=== PATIENT | female | born 1980 | race Caucasian/White ===

== ENCOUNTER → 2023-09-29 | Outpatient (CLI) | payer OTHER ==
[2023-09-30 03:19] LABS: ANA SCREEN with REFLEX Negative (Negative)
[2023-10-02 19:10] LABS: ANTI-CYC CITRULLINATED PEPT AB 5 units (0-19)
== END ==
LOC: LAB 13:54
PROVIDERS: Family Medicine
DX: R76.8 Other specified abnormal immunological findings in serum (principal)

== ENCOUNTER 2024-01-02 10:27 | Emergency (ER) | payer OTHER ==
[~2024-01-02] VITALS: Ht 160 cm; Wt 87.7 kg
[2024-01-02] MEDS ORDERED: CYMBALTA20 MG PO (10:54)
[2024-01-02] MEDS ORDERED: Morphine 4 MG/ML VIAL IV PRN (11:00)
[2024-01-02] MEDS ORDERED: NS 1,000 ML IV ONE (11:00)
[2024-01-02 11:13] LABS: BASO # 0.03 K/mm3 (0.02-0.10); EOS # 0.06 K/mm3 (0.04-0.40); HEMATOCRIT 41.9 % (37.0-47.0); HEMOGLOBIN 13.6 g/dL (12.5-16.0); LYMPH# 1.72 K/mm3 (1.50-4.00); MEAN CELL VOLUME 95 fl (78-100); MEAN CORPUSCULAR HEMOGLOBIN 31 pg (27-31); MEAN CORPUSCULAR HGB CONC 33 g/dL (33-37); MEAN PLATELET VOLUME 9.6 fl (7.4-10.4); MONO # 0.36 K/mm3 (0.20-0.80); PLATELET COUNT 301 K/mm3 (130-400); RED BLOOD COUNT 4.43 M/mm3 (4.10-5.30); RED CELL DISTRIBUTION WIDTH 12.4 % (11.5-14.5); WHITE BLOOD COUNT 5.9 K/mm3 (4.8-10.8)
[2024-01-02 11:18] LABS: ALBUMIN 4.4 g/dL (3.5-5.0); SODIUM 140 mmol/L (136-145)
[2024-01-02 11:19] LABS: CALCIUM 9.5 mg/dL (8.3-10.5)
[2024-01-02 11:20] LABS: GLUCOSE 82 mg/dL (65-105); TOTAL PROTEIN 7.4 g/dL (6.4-8.3)
[2024-01-02 11:21] LABS: CARBON DIOXIDE 23 mmol/L (22-29)
[2024-01-02 11:22] LABS: TOTAL BILIRUBIN 0.5 mg/dL (0.2-1.2)
[2024-01-02] MEDS ORDERED: Iohexol 300 - 100 ML VIAL IV ONE (11:22)
[2024-01-02 11:25] LABS: AST-SGOT 15 U/L (5-34)
[2024-01-02 11:27] LABS: ALT/SGPT 17 U/L (0-55); LIPASE 19 U/L (8-78)
[2024-01-02 11:35] LABS: TROPONIN-I < 0.030 ng/mL (0.00-0.033)
[2024-01-02 11:54] LABS: PH-URINE 7.5 (5.0 - 8.0); URINE APPEARANCE CLEAR (CLEAR); URINE BILIRUBIN NEGATIVE (NEGATIVE); URINE BLOOD NEGATIVE (NEGATIVE); URINE COLOR YELLOW (YELLOW); URINE GLUCOSE NEGATIVE (NEGATIVE); URINE KETONE NEGATIVE (NEGATIVE); URINE LEUKOCYTE ESTERASE NEGATIVE (NEGATIVE); URINE NITRATE NEGATIVE (NEGATIVE); URINE PROTEIN(semi-quant) NEGATIVE (NEGATIVE); URINE WBC 0-1 /hpf (0-3)
[2024-01-02] MEDS ORDERED: NORCO 325 MG-51 TA1 PO (12:17)
[2024-01-02 12:35] VITALS: BP 126/76
== END 2024-01-02 12:35 | disposition home or self-care (01) ==
LOC: ED 10:27
PROVIDERS: Physician Assistant
DX: R10.11 Right upper quadrant pain (principal); R10.12 Left upper quadrant pain; R07.89 Other chest pain; Z90.49 Acquired absence of other specified parts of digestive tract
CPT/HCPCS: J2270; J7030; Q9967

== ENCOUNTER → 2024-01-03 | Outpatient (CLI) | payer OTHER ==
[~2024-01-03] MED LIST: CYMBALTA20 MG PO; NORCO 325 MG-51 TA1 PO
== END ==
LOC: LAB 14:41
DX: R10.13 Epigastric pain (principal)

== ENCOUNTER → 2024-01-06 | Outpatient (CLI) | payer OTHER | LOC: LAB 12:15 | DX: R10.13 Epigastric pain (principal) ==

== ENCOUNTER → 2024-02-28 | Outpatient (CLI) | payer OTHER ==
[2024-02-28 16:54] LABS: ALBUMIN 4.3 g/dL (3.5-5.0); HEMATOCRIT 39.5 % (37.0-47.0); HEMOGLOBIN 12.6 g/dL (12.5-16.0); MEAN PLATELET VOLUME 9.5 fl (7.4-10.4); RED BLOOD COUNT 4.16 M/mm3 (4.10-5.30); RED CELL DISTRIBUTION WIDTH 12.9 % (11.5-14.5); WHITE BLOOD COUNT 8.4 K/mm3 (4.8-10.8)
[2024-02-28 16:56] LABS: CALCIUM 9.2 mg/dL (8.3-10.5)
[2024-02-28 16:57] LABS: TOTAL PROTEIN 7.2 g/dL (6.4-8.3)
[2024-02-28 16:59] LABS: TOTAL BILIRUBIN 0.3 mg/dL (0.2-1.2)
== END ==
LOC: LAB 16:35
PROVIDERS: Family Medicine
DX: R10.13 Epigastric pain (principal); R63.5 Abnormal weight gain

== ENCOUNTER 2024-04-23 09:16 | Emergency (ER) | payer OTHER ==
[~2024-04-23] VITALS: Ht 160 cm; Wt 95.5 kg
[~2024-04-23 09:16] MED LIST changes: +OMEPRAZOLE40 MG PO; +ZOFRAN ODT4 MG PO
[2024-04-23] MEDS ORDERED: NS 1,000 ML IV ONE (09:30)
[2024-04-23] MEDS ORDERED: Acetaminophen 325 MG TAB PO ONE (09:30)
[2024-04-23 10:14] LABS: BASO # 0.04 K/mm3 (0.02-0.10); EOS # 0.03 K/mm3 (0.04-0.40); EOS % 0.4 % (1.0-5.0); HEMATOCRIT 43.2 % (37.0-47.0); LYMPH# 1.05 K/mm3 (1.50-4.00); MEAN CELL VOLUME 93 fl (78-100); MEAN CORPUSCULAR HEMOGLOBIN 30 pg (27-31); MEAN CORPUSCULAR HGB CONC 32 g/dL (33-37); MEAN PLATELET VOLUME 9.3 fl (7.4-10.4); MONO # 0.82 K/mm3 (0.20-0.80); NEU # 4.91 K/mm3 (1.40-6.50); PLATELET COUNT 299 K/mm3 (130-400); RED BLOOD COUNT 4.64 M/mm3 (4.10-5.30); RED CELL DISTRIBUTION WIDTH 12.7 % (11.5-14.5); WHITE BLOOD COUNT 6.9 K/mm3 (4.8-10.8)
[2024-04-23 10:20] LABS: ALBUMIN 4.5 g/dL (3.5-5.0); SODIUM 137 mmol/L (136-145)
[2024-04-23 10:21] LABS: CALCIUM 9.8 mg/dL (8.3-10.5)
[2024-04-23 10:22] LABS: GLUCOSE 104 mg/dL (65-105); TOTAL PROTEIN 7.8 g/dL (6.4-8.3)
[2024-04-23 10:23] LABS: CARBON DIOXIDE 18 mmol/L (22-29)
[2024-04-23 10:28] LABS: AST-SGOT 25 U/L (5-34)
[2024-04-23 10:29] LABS: ALT/SGPT 25 U/L (0-55)
[2024-04-23] MEDS ORDERED: Ketorolac 30 MG/ML VIAL IV ONE (10:30)
[2024-04-23 10:36] LABS: TROPONIN-I < 0.030 ng/mL (0.00-0.033)
[2024-04-23 10:53] LABS: TOTAL BILIRUBIN 0.4 mg/dL (0.2-1.2)
[2024-04-23 12:20] VITALS: BP 117/75
== END 2024-04-23 12:07 | disposition home or self-care (01) ==
LOC: ED 09:16
DX: J02.9 Acute pharyngitis, unspecified (principal)
CPT/HCPCS: J1885; J7030